=== PATIENT | female | born 1945 | race Caucasian/White ===

== ENCOUNTER → 2022-02-22 | Outpatient (CLI) | payer MEDICARE, OTHER | END | disposition home or self-care (01) | LOC: LAB SHORT 13:12 | DX: N39.0 Urinary tract infection, site not specified (principal) | CPT/HCPCS: 87077; 87086; 87186 ==

== ENCOUNTER → 2022-08-05 | Outpatient (CLI) | payer MEDICARE, OTHER ==
[2022-08-05 12:18] LABS: Source, Urine Voided
[2022-08-05 13:14] LABS: Appearance, Urine Clear (Clear); Bilirubin, Urine Neg (Neg); Blood, Urine Neg (Neg); Color, Urine Yellow (P-Yellow); Glucose Qualitative, Urine Neg (Neg); Ketones, Urine Neg (Neg); Leukocyte Esterase, Urine Neg (Neg); Nitrite, Urine Neg (Neg); Protein, Urine Neg (Neg); Urobilinogen, Urine NORM (Normal)
[2022-08-05 14:50] LABS: Candida species (DNA Probe) Negative (NEGATIVE); G. vaginalis (DNA Probe) Negative (NEGATIVE); T. vaginalis (DNA Probe) Negative (NEGATIVE)
== END ==
LOC: LAB 12:15 → LAB SHORT 12:15
PROVIDERS: Student in an Organized Health Care Education/Training Program
DX: R30.0 Dysuria (principal)
CPT/HCPCS: 81003; 87480; 87510; 87660

== ENCOUNTER → 2023-03-13 | Outpatient (CLI) | payer MEDICARE, OTHER | LOC: LAB SHORT 13:31 → LAB 13:31 | DX: N39.0 Urinary tract infection, site not specified (principal) | CPT/HCPCS: 87086 ==

== ENCOUNTER 2024-12-02 10:35 | Day surgery (SDC) | payer MEDICARE, OTHER ==
[~2024-12-02] VITALS: Ht 165.1 cm; Wt 97.3 kg
[~2024-12-02 10:35] MED LIST: Lidocaine HCl 2% 10 ML SDA ONE
[2024-12-02] MEDS ORDERED: METO25ER PO (10:52)
[2024-12-02] MEDS ORDERED: LEVSOD137 PO (10:53)
[2024-12-02] MEDS ORDERED: JARDIANCE10 MG PO (10:53)
[2024-12-02] MEDS ORDERED: LOSA25 PO (10:53)
[2024-12-02] MEDS ORDERED: Ativan1 MG PO (10:54)
[2024-12-02] MEDS ORDERED: Crestor40 MG PO (10:54)
[2024-12-02] MEDS ORDERED: ZINC50 M3 PO (10:55)
[2024-12-02] MEDS ORDERED: VITAMIN D33000 UNIT PO (10:55)
[2024-12-02] MEDS ORDERED: C COMPLEX1000 M2 PO (10:55)
[2024-12-02] MEDS ORDERED: CRANBERRY500 M1 PO (10:56)
[2024-12-02] MEDS ORDERED: B-COMPLEX1 EACH PO (10:56)
[2024-12-02] MEDS ORDERED: MAGNESIUM GLYC120 M2 PO (10:59)
[2024-12-02] MEDS ORDERED: TURMERIC-GINGE1 EACH PO (11:00)
[2024-12-02] MEDS ORDERED: IBUPROFEN200 M1 PO (11:00)
[2024-12-02] MEDS ORDERED: CeFAZolin Sodium 2,000 MG VIAL ONE (11:43)
[2024-12-02] MEDS ORDERED: FentaNYL Citrate 50 MCG/ML 2 ML Injection ONE ×2 (11:44→12:28)
[2024-12-02] MEDS ORDERED: Phenylephrine HCl 100 MCG/ML-NS 10MLSYR (1MG/10ML) ONE (11:45)
--- NOTE | 2024-12-02 11:59 | NUR ---
12/02/24 1159 Rosalie Barr ABRASION SKIN TEAR TO OP HAND. COVERED W.BANDAID, REMOVED PRIOR TO PREP. DR. TORRES AWARE
--- NOTE | 2024-12-02 12:38 | NUR ---
12/02/24 1238 Kae Nickerson PT. VERBALIZES PAIN TO LEFT HAND NOW A "5" AFTER FENTANYL GIVEN. PT. VERBALIZES THROBBING STILL THERE BUT PAIN BETTER.
[2024-12-02] MEDS ORDERED: HYDROcodone 5-APAP 325 TAB ONE (13:17)
[2024-12-02 13:24] VITALS: BP 140/62
== END 2024-12-02 12:10 | disposition home or self-care (01) ==
LOC: ORSCSDS 10:35
PROVIDERS: Orthopaedic Surgery
PROC: 0LB60ZZ Excision of Left Lower Arm and Wrist Tendon, Open Approach (ICD-10-PCS; principal; 2024-12-02 12:00)
DX: M67.432 Ganglion, left wrist (principal); E11.9 Type 2 diabetes mellitus without complications; I10 Essential (primary) hypertension; I25.10 Atherosclerotic heart disease of native coronary artery without angina pectoris; E66.9 Obesity, unspecified; Z68.35 Body mass index [BMI] 35.0-35.9, adult; E07.9 Disorder of thyroid, unspecified; Z79.84 Long term (current) use of oral hypoglycemic drugs; Z79.899 Other long term (current) drug therapy; Z87.891 Personal history of nicotine dependence
CPT/HCPCS: 82947; 88304; A9270; J0690; J2003; J2371; J2704; J3010; J7120